=== PATIENT | female | born 1995 | race Caucasian/White ===

== ENCOUNTER → 2022-06-09 12:00 | Outpatient (BNVA) | payer OTHER, SELFPAY | PROVIDERS: Family Provider Family Medicine; PCP Family Medicine; Visit Provider Nurse Practitioner Women's Health | DX: N72 Inflammatory disease of cervix uteri (principal); Z12.4 Encounter for screening for malignant neoplasm of cervix | CPT/HCPCS: 87491; 87591; 87661; 88175 ==

== ENCOUNTER → 2023-08-22 16:10 | Outpatient (BNVA) | payer OTHER, SELFPAY | PROVIDERS: Family Provider Family Medicine; PCP Clinical Nurse Specialist Adult Health; Visit Provider Clinical Nurse Specialist Adult Health | DX: Z00.00 Encounter for general adult medical examination without abnormal findings (principal); Z79.899 Other long term (current) drug therapy | CPT/HCPCS: 80053; 85025 ==

== ENCOUNTER → 2024-10-09 12:05 | Outpatient (BNVA) | payer OTHER, SELFPAY | PROVIDERS: Family Provider Family Medicine; Visit Provider Nurse Practitioner Women's Health | DX: R39.89 Other symptoms and signs involving the genitourinary system (principal); N89.8 Other specified noninflammatory disorders of vagina; N72 Inflammatory disease of cervix uteri | CPT/HCPCS: 84315 ==

== ENCOUNTER → 2024-12-04 10:55 | Outpatient (BNVA) | payer OTHER, SELFPAY | PROVIDERS: Family Provider Family Medicine; Visit Provider Clinical Nurse Specialist Adult Health | DX: F41.9 Anxiety disorder, unspecified (principal); K59.01 Slow transit constipation | CPT/HCPCS: 80053; 82306; 83036 ==